=== PATIENT | male | born 1950 | race American Indian/Alaskan Native ===

== ENCOUNTER 2017-02-12 09:46 | Day surgery (SDC) | payer MEDICARE ==
[2017-02-12] MEDS ORDERED: WATER FOR IRRIG STERILE IR ONE (10:46)
[2017-02-12] MEDS ORDERED: NACL 0.9% 1000 ML 1,000 ML IV SCH (11:00)
[2017-02-12] MEDS ORDERED: DILAUDID IV ONE (11:17)
--- NOTE | 2017-02-12 11:19 | Anesthesia Consultation ---
Anesthesia Consult and Med Hx Date of service: 02/12/17 - Airway Anesthetic Teeth Evaluation: Partials ROM Head & Neck: Adequate Mental/Hyoid Distance: Adequate Mallampati Class: Class I Intubation Access Assessment: Good - Pulmonary Exam CTA: Yes - Cardiac Exam Cardiac Exam: RRR - Pre-Operative Health Status Proposed Anesthetic Plan: MAC - Pre-Anesthesia Comment Pre-Anesthesia Comments: H/O severe abdominal pain and 20 lb weight loss
--- NOTE | 2017-02-12 11:20 | Anesthesia Day of Surgery ---
Anesthesia Day of Surgery - Day of Surgery Patient Examined: Yes Patient H&P Reviewed: Yes Patient is NPO: Yes
--- NOTE | 2017-02-12 13:13 | History and Physical Report ---
History of Present Illness Date of examination: 02/12/17 Date of admission: 02/12/2017 Chief complaint: Abdominal pain predominantly epigastric with nausea vomiting early satiety and anorexia and weight loss with bloating and intestinal gas History of present illness: Patient is a 66-year-old male who is vegetarian. He presents with several weeks of progressive epigastric pain and also right upper quadrant pain with nausea vomiting and also onset of abnormal weight loss. Patient describes any satiety. His appetite has been poor he has sitophobia because sometimes is afraid to eat as this leads to the excruciating pain that he has. Patient now presents for endoscopic assessment. Past History Past Medical History: other (Patient denies any significant past medical history ) Past Surgical History: No surgical history Social history: denies: smoking, alcohol abuse Medications and Allergies Allergies Allergy/AdvReac Type Severity Reaction Status Date / Time ibuprofen Allergy Nausea Unverified 02/12/17 09:47 Home Medications Medication Instructions Recorded Confirmed Last Taken Type Dicyclomine [Bentyl] 20 mg PO QID 02/12/17 02/12/17 02/11/17 23:00 History Active Meds: Active Medications Sodium Chloride (Nacl 0.9% 1000 Ml) 1,000 mls @ 50 mls/hr IV DIRECT SYLVIE Last Admin: 02/12/17 11:35 Dose: 50 mls/hr Review of Systems Constitutional: weight loss, no fever, no chills, no sweats Ears, nose, mouth and throat: no ear pain, no ear discharge, no tinnitis, no decreased hearing, no nose pain, no nasal congestion, no nasal discharge, no sinus pressure, no sinus pain, no epistaxis, no bleeding gums, no dental pain, no dysphagia, no hoarseness, no sore throat, no swelling in mouth, no swelling in throat, no odynophagia, no post-nasal drip, no headache, no vertigo, no pain front of neck, no neck fullness/pressure, no neck lump Cardiovascular: no chest pain, no orthopnea, no palpitations, no rapid/ irregular heart beat, no edema, no syncope, no dyspnea on exertion, no paroxysmal nocturnal dyspnea, no claudication, no phlebitis, no high blood pressure, no leg edema Respiratory: no cough, no hemoptysis, no shortness of breath, no dyspnea on exertion, no congestion, no wheezing Gastrointestinal: abdominal pain, nausea, vomiting, loss of appetite, early satiety, indigestion, belching, excessive gas, dyspepsia/bloating, early satiety , no diarrhea, no constipation, no change in bowel habits, no hematemesis, no coffee ground emesis, no BRBPR, no melena, no hematochezia Genitourinary Male: flank pain, no hematuria, no discharge, no urinary frequency , no urinary hesitancy, no nocturia Rectal: no pain, no incontinence, no bleeding Musculoskeletal: no neck stiffness, no neck pain, no shooting arm pain Integumentary: no deferred Neurological: no head injury, no transient paralysis, no paralysis, no weakness , no parathesias, no numbness, no tingling, no seizures, no syncope, no tremors , no vertigo, no headaches, no confusion, no gait dysfunction Psychiatric: anxiety, change in sleep habits, no memory loss, no disorientation , no hallucinations, no depression, no hopelessness, no anhedonia Endocrine: no cold intolerance, no heat intolerance, no excessive thirst, no polyuria, no excessive sweating Hematologic/Lymphatic: no easy bruising, no easy bleeding, no lymphadenopathy, no lymphedema Allergic/Immunologic: no urticaria, no allergic rhinitis, no wheezing, no persistent infections, no anaphylaxis, no angioedema Exam - Constitutional Vitals: Temp Pulse Resp BP Pulse Ox 97.4 F L 49 L 16 138/79 100 02/12/17 11:28 02/12/17 11:28 02/12/17 11:28 02/12/17 11:28 02/12/17 11:28 General appearance: Present: no acute distress, mild distress, cachectic - Neck Neck: Present: supple, normal ROM - Respiratory Respiratory effort: normal Respiratory: bilateral: CTA, negative: diminished, rales, rhonchi, wheezing, other - Cardiovascular Rhythm: regular Heart Sounds: Present: S1 & S2. Absent: gallop - Extremities Extremities: no ischemia, pulses intact, Full ROM Peripheral Pulses: within normal limits - Abdominal General gastrointestinal: Present: soft, non-tender, normal bowel sounds. Absent: hepatomegaly, splenomegaly Male genitourinary: Present: deferred - Rectal Rectal Exam: deferred - Integumentary Integumentary: Present: clear - Musculoskeletal Musculoskeletal: strength equal bilaterally - Psychiatric Psychiatric: appropriate mood/affect, intact judgment & insight, memory intact, cooperative - Neurologic Neurologic: CNII-XII intact, no focal deficits, moves all extremities, gait normal Assessment and Plan Abdominal pain. The epigastric Early satiety with anorexia Abnormal weight loss Dyspepsia Bloating with gas Plan: An upper endoscopy will be done to assess patient. Additional recommendations may be made depending on the endoscopic findings. If the upper endoscopy is unremarkable, a CT scan of the abdomen and pelvis will need to be done. Additional recommendations will be made depending on the endoscopic findings.
--- NOTE | 2017-02-12 13:21 | Operative Report ---
Operative Report Operative Report: Date of procedure: 02/12/2017 Procedure: Esophagogastroduodenoscopy with multiple mucosal biopsies Attending physician: David Canchola MD Sewer Contractor: David Canchola MD Indication: Patient is a 66-year-old male who presents history of abdominal pain with dyspepsia and early satiety bloating and intestinal gas and nausea. Patient also with a history of sitophobia because of his symptoms. Patient also reports abnormal weight loss. An upper endoscopy is done to evaluate patient so that treatment may be directed based on the findings. Consent: Informed consent was obtained after advising the patient and family regarding nature of this procedure, its indications, potential benefits as well as possible complications including but not limited to bleeding perforation and adverse reaction to medication, infection as well as other cardiopulmonary complications. An informed written and verbal consent was then obtained after due opportunity was provided for questions and answers. Monitoring: Patient was monitored continuously with pulse oximetry and electrocardiographic recordings as well as blood pressure recordings. Vital signs remained stable throughout this procedure with no untoward events. Preoperative assessment: Patient was assessed immediately prior to this procedure for capacity to tolerate monitored anesthesia care and moderate sedation as well as general anesthesia. Patient's ASA classification is 2, Mallampati class is 2, Hyomental distance is 3. Instrument: SAFCelln video endoscope Medications: Propofol given intravenously in divided doses. For details please refer to anesthesia records. Description of procedure: Patient was placed in the left lateral decubitus position after achieving sedation, the endoscope was introduced into the esophagus under direct vision. It was then advanced beyond the esophagus into the stomach and then beyond the stomach into the duodenum and to the second portion of the duodenum. It was subsequently withdrawn with careful inspection of all mucosal surfaces with the following findings. Findings: The Z line was irregular at 47 cm. There was mild erosive esophagitis involving the distal esophagus. The gastric mucosa appeared grossly abnormal. It appeared somewhat disorganized with loss of normal vascular markings, edema of the underlying gastric mucosa with effacement of normal vasculature and small ulcers in the gastric antrum. There were multiple erosions seen. The changes however in the stomach were diffuse and involved the antrum and the body the fundus and the cardia. The endoscopic appearance is not pathognomonic. There is no gross mass lesion seen however the mucosal changes nonetheless appeared grossly abnormal. There was a crescent-shaped ulcer seen at the pylorus. Several biopsies were obtained from the antrum and body for histopathology. In the duodenum, there was a diverticulum in the duodenal bulb. There was gross deformity of the duodenal bulb. Beyond this area however examination to the third portion of the duodenum appeared grossly normal. Impression: Mild erosive esophagitis involving the distal esophagus Irregularity of the Z line Grossly abnormal-appearing gastric mucosa. Status post biopsies Gastric ulcer in the in the pylorus. Multiple diminutive ulcers in the gastric antrum Duodenal bulb diverticulum. Plan: Follow pathology report. Continue empiric treatment with proton pump inhibitors The endoscopic appearance is highly worrisome polyp that was not there any pathognomonic appearance for any specific disease etiology. The pathology report however will hopefully clarify the endoscopic findings. Because of patient's symptoms, will obtain an amylase and lipase level. Also, obtain a CT scan of the abdomen and pelvis. Additional recommendations will be made in follow-up. Depending on the pathology report and CT scan of the abdomen and pelvis, thes may provide clues to the patient's symptoms. If however the pathology is nondiagnostic, additional workup would include a small bowel follow-through.
[2017-02-12] MEDS ORDERED: DIPRIVAN 10 MG/ML IV ONE (14:25)
--- NOTE | 2017-02-12 15:28 | Discharge Summary ---
Short Stay Discharge Plan Activity: advance as tolerated Weight Bearing Status: Weight Bear as Tolerated Diet: regular
--- NOTE | 2017-02-12 15:43 | Post Anesthesia Evaluation ---
- Post Anesthesia Evaluation Patient Participated: Yes Airway Patent: Yes Stable Respiratory Function: Yes Nausea/Vomiting: No Temp > 96.8F: Yes Pain Manageable: Yes Adequeate Hydration: Yes Anesthesia Complications: No
[2017-02-12 16:10] LABS: Basophils % (Auto) 0.8 % (0.0-1.8); Eosinophils % (Auto) 0.8 % (0.0-4.3); Hematocrit 40.5 % (35.5-45.6); Hemoglobin 13.5 gm/dl (11.8-15.2); Mean Corpuscular HGB Conc 33 % (32-34); Mean Corpuscular Hemoglobin 31 pg (28-32); Mean Corpuscular Volume 91 fl (84-94); Platelet Count 168 K/mm3 (140-440); Red Blood Count 4.43 M/mm3 (3.65-5.03); Red Cell Distribution Width 13.1 % (13.2-15.2); White Blood Count 3.7 K/mm3 (4.5-11.0)
[2017-02-12 16:20] VITALS: BP 138/83
[2017-02-12 16:26] LABS: Amylase 49 units/L (27-131); Lipase 14 units/L (13-60)
[2017-02-12 16:28] LABS: Alanine Aminotransferase 16 units/L (7-56); Albumin 3.9 g/dL (3.9-5); Albumin/Globulin Ratio 1.4 %; Alkaline Phosphatase 85 units/L (35-129); Anion Gap 15 mmol/L; BUN/Creatinine Ratio 15; Blood Urea Nitrogen 12 mg/dL (9-20); Calcium 8.9 mg/dL (8.4-10.2); Carbon Dioxide 27 mmol/L (22-30); Chloride 97.3 mmol/L (98-107); Glucose 89 mg/dL (75-100); Sodium 134 mmol/L (137-145); Total Protein 6.6 g/dL (6.3-8.2)
--- NOTE | 2017-02-12 19:45 | Cat Scan Report ---
FINAL REPORT PROCEDURE: CT abdomen and pelvis without and with contrast. TECHNIQUE: Computerized axial tomography of the abdomen and pelvis was performed without contrast followed by computerized axial tomography of the abdomen and pelvis after the IV injection of iodinated nonionic contrast. HISTORY: Weight loss. COMPARISON: No prior studies are available for comparison. FINDINGS: The lung bases are clear. There are no pleural effusions. The heart size is normal. The spleen appears normal. The pancreas is small. The gallbladder is present. There are numerous small focal masses with low attenuation within the liver. These do not have sharply defined margins. The largest is in the right lobe measuring approximately 13 millimeters in diameter. These are worrisome for either metastatic disease or liver abscesses. Clinical correlation is recommended. The adrenal glands are not enlarged. Both kidneys appear normal in size and configuration. The abdominal aorta has a normal caliber. There is no retroperitoneal adenopathy. The gastrointestinal tract is unremarkable. A normal appendix is visible. The bladder, seminal vesicles and prostate appear normal. There is a focal lucency with surrounding sclerosis involving the inferior endplate of L4. This may represent a Schmorl's node. Metastatic disease is possible. The regional skeleton otherwise appears intact. There is partial fusion of the sacroiliac joints. IMPRESSION: Multiple small focal liver lesions consistent with metastatic disease or possibly abscesses. Possible Schmorl's node at L4 versus destructive lesion. Partial fusion of both sacroiliac joints.
== END 2017-02-12 09:47 | disposition home or self-care (01) ==
LOC: GIO 09:46
PROVIDERS: ATTEND Internal Medicine Gastroenterology
DX: K22.8 Other specified diseases of esophagus (principal); K20.8 Other esophagitis; K25.9 Gastric ulcer, unspecified as acute or chronic, without hemorrhage or perforation; K57.10 Diverticulosis of small intestine without perforation or abscess without bleeding; Z88.8 Allergy status to other drugs, medicaments and biological substances
CPT/HCPCS: 36415; 43239; 74178; 80053; 82150; 83690; 85025; 88305; 88342; J1170; J2704; J7030; Q9967